=== PATIENT | female | born 1995 | race Caucasian/White ===

== ENCOUNTER 2017-09-03 08:38 | Emergency (ER) | payer OTHER ==
[2017-09-03] MEDS: DIPHENHYDRAMINE 50 MG INJ IM (09:15)
[2017-09-03] MEDS: DEXAMETHASONE 10 MG/ML 1 ML INJ IM (09:16)
== END 2017-09-03 10:51 | disposition home or self-care (01) ==
LOC: FTE 08:38
DX: R21 Rash and other nonspecific skin eruption (principal)
CPT/HCPCS: 96372; 99284-25

== ENCOUNTER 2017-09-04 16:29 | Emergency (ER) | payer OTHER ==
[2017-09-04] MEDS: predniSONE 20 MG TAB PO (19:02)
[2017-09-04] MEDS: hydrOXYzine HCL 25 MG TAB PO (19:02)
[2017-09-04] MEDS: TRIAMCINOLONE ACET 0.025% 60 ML LOT TOP (19:03)
== END 2017-09-04 19:34 | disposition home or self-care (01) ==
LOC: FTE 16:29
DX: L23.9 Allergic contact dermatitis, unspecified cause (principal)
CPT/HCPCS: 99284; J7512